=== PATIENT | female | born 1975 | race Caucasian/White ===

== ENCOUNTER 2023-09-08 22:15 | Emergency (ER) | payer OTHER, SELFPAY ==
[2023-09-08 22:16] VITALS: BP 226/131
[2023-09-08 22:19] VITALS: BP 210/129
[2023-09-08 22:40] VITALS: BP 200/112
[2023-09-08 22:49] LABS: Hematocrit 36.5 % (37.0-47.0); Hemoglobin 13.4 g/dL (12.0-16.0); Mean Corp Hgb Conc. 36.7 g/dL (33.0-37.0); Mean Corpuscular Hgb 31.5 pg (27.0-31.0); Mean Corpuscular Volume 85.7 fL (81.0-99.0); Mean Platelet Volume 9.3 fL (7.4-10.4); Platelet Count 381 10^3/uL (130-400); Red Blood Cell Count 4.26 10^6/uL (4.20-5.40); White Blood Cell Count 9.3 10^3/uL (4.8-10.8)
--- NOTE | 2023-09-08 22:56 | ED.GENMED ---
History of Present Illness
General
Chief Complaint: Blood Pressure Problem
Source: patient and spouse
Time Seen by Provider: 09/08/23 22:38
Travel History
Have you had any contact with someone who has COVID-19?: No
Do you have any symptoms of coronavirus? Fever > 100 degrees, chills, cough, shortness of breath, sore throat, loss of taste or smell, muscle aches, or headache?: No
History of Present Illness
History of Present Illness:
This patient is a 48-year-old female who states that she went to the [facility] screen [facility] for her annual checkup last month and her blood pressure was noted to be elevated although she does not know what the exact number was. She was advised to have her
blood pressure checked later that week, but did not get a chance to do that until tonight when she noted her blood pressure was markedly elevated which prompted her visit here. The patient is asymptomatic. She has a history of ocular migraines and
states that she did get a ocular migraine yesterday which was typical for her and now fully resolved. She denies blurry vision, double vision, severe headaches, dizziness, vertigo, neck pain, chest pain, dyspnea, abdominal pain, numbness, tingling,
focal weakness, or other complaints.
Past History
Past History
ED Past Medical History: Other (Ocular migraines)
ED Past Surgical History: Other (Sinus surgery)
Social History
Tobacco: Non-smoker
Alcohol: Occasional
Drug: None
Personal:
Living: with family
Phy Exam
Physical Exam
Physical Exam:
GENERAL: Alert , in no apparent distress
EYE: pupils equal and reactive, EOMI, no photophobia
NECK: Supple, no significant adenopathy.
ENT: o/p clr, mmm.
CARDIAC: Regular rate and rhythm .
LUNGS: Clear breath sounds bilaterally, no acute respiratory distress, no wheezes/rales/rhonchi
ABDOMEN: Soft, without focal tenderness, no r/g, no cvat
NEUROLOGICAL: Alert and oriented, no focal neuro deficits, motor 5 out of 5, sensory intact, cranial nerves II through XII intact, [id number] normal
SKIN: Warm and dry, skin intact.
MUSCULOSKELETAL: No edema, well perfused.
PSYCH: Normal and appropriate interaction.
Course
Orders/Labs/Results
Orders:
Orders
09/08/23 22:36
CMP [Comprehensive Metabolic Panel] Urgent
Complete Blood Count/No Diff Urgent
09/08/23 22:58
Lisinopril [Zestril] 5 mg PO NOW STA
09/08/23 22:59
Electrocardiogram (*1) Urgent
Reason for Study: Hypertension, Benign
EKG- Treatment ONCE
Abnormal Lab Results
09/08/23
22:36
Hct 36.5 L %
(37.0-47.0)
MCH 31.5 H pg
(27.0-31.0)
BUN 22 H mg/dl
(7-17)
Glucose 109 H mg/dl
(70-99)
09/08/23 22:36
09/08/23 22:36
Vital Signs
Initial and Last Documented VS:
Initial Vital Signs
Temp Pulse Resp BP Pulse Ox
98.2 F 90 18 226/131 100
09/08/23 22:16 09/08/23 22:16 09/08/23 22:16 09/08/23 22:16 09/08/23 22:16
Last Documented Vital Signs
Temp Pulse Resp BP Pulse Ox
98.2 F 85 23 179/111 98
09/08/23 22:16 09/09/23 00:01 09/09/23 00:01 09/09/23 00:01 09/09/23 00:01
*Critical Care Note
Total Time (30-74mins, 75-104mins- exclusive of procedures): Not Applicable
Update Note
Update Note:
Patient presents to the Emergency Department with ___elevated blood pressure
Number and Complexity of Problems Addressed at the Encounter
� Chronic conditions affecting care:
� Acute Exacerbation and/or Progression of Chronic Illness:
� Differential Diagnosis includes: But not limited to renal artery stenosis, benign hypertension, whitecoat hypertension, etc. etc.
Amount and/or Complexity of Data to be Reviewed and Analyzed
� I performed an independent evaluation of and my interpretation is:
EKG:read by me, nsr, nl rate, nl axis, no specific ischemia noted
CT:
Xrays:
Laboratory Studies:generally unremkarable
Other:
� Review of other/old records reveals:
� Clinical information was obtained by an independent historian:
� Prescriptions/Medications Considered but not given:
� Further testing considered but not performed:
Risk of Complications and/or Morbidity or Mortality of Patient Management
� Social determinants of health affecting care:
� Discussion with other providers (PCP, Hospitalists, Consultants, etc):
� Escalation of care including admission/observation vs risk of discharge considered: 10:58 PM workup in progress, patient with asymptomatic elevated blood pressure, not suggestive of hypertensive emergency. Does not have signs
or symptoms to suggest impending stroke, ACS, etc. etc. Long discussion with patient regarding importance of close follow-up. Will begin treatment with a low-dose antihypertensive with a goal of gradually lowering blood pressure.
Blood pressure improved although not normal at this time. Patient remains asymptomatic. Long discussion with patient and who is at bedside regarding important a follow-up and reasons to return to the ER
ED Attending Note
-
Portions of this chart may have been created with voice recognition software.� Occasional wrong word or��sound alike� substitutions may have occurred due to the inherent limitations of voice recognition software.
Discharge Plan
Departure
Patient Disposition: Home (Routine Discharge)
Date of Disposition: 09/09/23
Time of Disposition: 00:08
Patient with high blood pressure during this ER visit?: Yes
Condition: Good
Discharge Problem:
Hypertension
Instructions: High Blood Pressure (DC)
Prescriptions:
New
lisinopril 5 mg tablet
5 mg PO DAILY Qty: 30 0RF
No Action
norgestimate-ethinyl estradiol [Sprintec (28)] 1 TAB tablet
1 tab PO HS
cetirizine 10 MG tablet
10 mg PO HS
guaifenesin [Mucus Relief ER] 600 MG tablet extended release 12hr
600 mg PO Q12H
meloxicam 15 mg Tablet
15 mg PO DAILY
Referrals:
Marisol De La Torre CRNP [Family Provider] - Tomorrow
Activity Restrictions/Additional Instructions:
PLEASE TAKE THE PRESCRIBED BLOOD PRESSURE MEDICATION DIRECTED. SEE YOUR DOCTOR WITHIN THE NEXT 24 TO 48 HOURS FOR REASSESSMENT AND FURTHER EVALUATION. IF YOU DEVELOP SEVERE HEADACHE, CHANGE IN VISION, CHANGE IN SPEECH, CHANGE IN BALANCE,
WEAKNESS, NUMBNESS, CHEST PAIN, SHORTNESS OF BREATH, OR OTHER WORRISOME SIGNS, PLEASE RETURN TO THE EMERGENCY DEPARTMENT IMMEDIATELY
Interventions
Interventions:
*General Assessment Last Done: 09/08/23 23:23
*Neglect/Abuse Screening Last Done: 09/08/23 23:23
ED- Fall Risk Assessment Last Done: 09/08/23 23:28
*ED COVID-19 Vaccine History Last Done: 09/08/23 23:23
ED- Cardiac Assessment Last Done: 09/08/23 23:28
ED- Neurological Assessment Last Done: 09/08/23 23:28
ED- Pulmonary Assessment Last Done: 09/08/23 23:28
Discharge Date and Time
Print Language: INDONESIAN
[2023-09-08 23:00] VITALS: BP 184/115
[2023-09-08 23:06] VITALS: BMI 31.1
[2023-09-08 23:07] LABS: ALT (SGPT) 16 U/L (0-35); AST (SGOT) 24 U/L (14-36); Albumin 4.2 g/dl (3.5-5.0); Alkaline Phosphatase 66 U/L (38-126); Blood Urea Nitrogen 22 mg/dl (7-17); Calcium 9.8 mg/dl (8.4-10.2); Carbon Dioxide 26 mmol/L (22-30); Chloride 103 mmol/L (98-107); Glucose 109 mg/dl (70-99); Potassium 3.7 mmol/L (3.5-5.1); Sodium 138 mmol/L (135-145); Total Bilirubin 0.4 mg/dl (0.2-1.3); Total Protein 7.4 g/dl (6.3-8.2); eGFR > 60.00
[2023-09-08] MEDS: ZESTRIL 5 MG PO (23:07)
[2023-09-09] VITALS: BP 178/126
[2023-09-09 00:01] VITALS: BP 179/111
== END 2023-09-09 00:19 | disposition home or self-care (01) ==
LOC: EMR 22:15
PROVIDERS: Emergency Medicine; EMERGENCY PHYSICIAN Emergency Medicine; FAMILY PHYSICIAN Nurse Practitioner Adult Health
DX: I10 Essential (primary) hypertension (principal); G43.809 Other migraine, not intractable, without status migrainosus; Z91.048 Other nonmedicinal substance allergy status
CPT/HCPCS: 99283; 80053; 85027; 93005

== ENCOUNTER → 2023-10-02 09:57 | Outpatient (REF) | payer OTHER, SELFPAY | LOC: HWRAD 09:57 | PROVIDERS: ATTENDING PHYSICIAN Nurse Practitioner Adult Health | DX: M54.50 Low back pain, unspecified (principal) | CPT/HCPCS: 76770 ==

== ENCOUNTER → 2023-12-02 12:56 | Outpatient (REF) | payer OTHER, SELFPAY | LOC: HWWDC 12:56 | PROVIDERS: ATTENDING PHYSICIAN Nurse Practitioner Family; FAMILY PHYSICIAN Emergency Medicine | DX: Z12.31 Encounter for screening mammogram for malignant neoplasm of breast (principal) | CPT/HCPCS: 77063; 77067 ==

== ENCOUNTER → 2023-12-05 07:40 | Outpatient (REF) | payer OTHER, SELFPAY | LOC: RAD 07:40 | PROVIDERS: ATTENDING PHYSICIAN Emergency Medicine | DX: I10 Essential (primary) hypertension (principal) | CPT/HCPCS: 93975 ==

== ENCOUNTER → 2024-10-19 09:28 | Outpatient (REF) | payer BC, SELFPAY | LOC: WDC 09:28 | PROVIDERS: ATTENDING PHYSICIAN Obstetrics & Gynecology; FAMILY PHYSICIAN Emergency Medicine | DX: N64.4 Mastodynia (principal) | CPT/HCPCS: 76642; 77062; 77066 ==

== ENCOUNTER → 2024-10-23 17:22 | Outpatient (REF) | payer BC, SELFPAY | LOC: RAD 17:22 | PROVIDERS: ATTENDING PHYSICIAN Obstetrics & Gynecology; FAMILY PHYSICIAN Emergency Medicine | DX: N92.6 Irregular menstruation, unspecified (principal) | CPT/HCPCS: 76830; 76856 ==